=== PATIENT | male | born 1995 | race Caucasian/White ===

== ENCOUNTER 2020-04-17 14:00 | Emergency (ER) | payer OTHER ==
[~2020-04-17] VITALS: Ht 188 cm; Wt 77.1 kg
[2020-04-17 14:09] VITALS: BP 122/94
--- NOTE | 2020-04-17 14:16 | NUR ---
SEEN AND EXAMINED BY .
[2020-04-17] MEDS ORDERED: HYDR-4209 PO (14:42)
--- NOTE | 2020-04-17 14:50 | NUR ---
R WRIST VELCRO SPLINT PROVIDED.
[2020-04-17] MEDS ORDERED: HYDROCODONE/APAP 5/325MG TABLET ONE (14:51)
--- NOTE | 2020-04-17 14:54 | NUR ---
Patient discharged to home in stable condition. Written and verbal after care instructions given. Patient verbalizes understanding of instruction.
[2020-04-17] MEDS ORDERED: HYDROCODONE/APAP 5/325MG TABLET PO ONE (15:00)
== END 2020-04-17 14:55 | disposition home or self-care (01) ==
LOC: ER 14:04
DX: G56.01 Carpal tunnel syndrome, right upper limb (principal); M79.631 Pain in right forearm
CPT/HCPCS: 73090-TC; 73130-TC

== ENCOUNTER → 2023-05-06 | Emergency (ER) | payer OTHER ==
[~2023-05-06] VITALS: Ht 188 cm; Wt 76.2 kg
[~2023-05-06] MED LIST: ACETAMINOPHEN ES 500 MG TABLET ONE; HYDR-4209 PO; LIDOCAINE MPF 1%-EPI 1:200,000 30 ML VIAL IJ ONE; TDAP [DIPH/PERTUSSIS/TET] 0.5 ML VIAL IM ONE
[2023-05-06] MEDS: TDAP [DIPH/PERTUSSIS/TET] 0.5 ML VIAL IM ONE (13:00)
[2023-05-06] MEDS: LIDOCAINE HCL/PF 1% 30 ML VIAL TP ONE (14:36)
[2023-05-06] MEDS: ACETAMINOPHEN ES 500 MG TABLET PO ONE (14:36)
[2023-05-06 15:53] VITALS: BP 122/68; TEMP 98; O2SAT 99
== END | disposition home or self-care (01) ==
LOC: ER 12:54
DX: S61.210A Laceration without foreign body of right index finger without damage to nail, initial encounter (principal); S61.212A Laceration without foreign body of right middle finger without damage to nail, initial encounter; Z79.899 Other long term (current) drug therapy; W26.0XXA Contact with knife, initial encounter; Y93.89 Activity, other specified; Y92.89 Other specified places as the place of occurrence of the external cause; Y99.8 Other external cause status
CPT/HCPCS: 12002; 90471; 90715; 99283; J3490